=== PATIENT | male | born 2000 | race Two or more races ===

== ENCOUNTER 2021-12-16 13:14 | Emergency (ER) | payer OTHER ==
[2021-12-16 13:23] VITALS: BP 115/74; PULSE 93; TEMP 98.7; BMI 19.8
[2021-12-16] MEDS ORDERED: DIPHTH,PERTUSS(ACELL),TET 0.5 ML DISP.SYRIN IM ONE ×2 (14:15→14:20)
[2021-12-16] MEDS ORDERED: ceFAZolin SODIUM 1 GM VIAL IM ONE (16:03)
[2021-12-16] MEDS ORDERED: ceFAZolin SODIUM 1 GM VIAL ONE (16:24)
== END 2021-12-16 16:52 | disposition home or self-care (01) ==
LOC: JERFT 13:14
PROC: 3E02329 Introduction of Other Anti-infective into Muscle, Percutaneous Approach (ICD-10-PCS; principal; 2021-12-16)
PROC: 3E0234Z Introduction of Serum, Toxoid and Vaccine into Muscle, Percutaneous Approach (ICD-10-PCS; 2021-12-16)
DX: S61.411A Laceration without foreign body of right hand, initial encounter (principal); W25.XXXA Contact with sharp glass, initial encounter
CPT/HCPCS: 73130-TC-RT-FY; 90471; 90715; 96372; 99284-25